=== PATIENT | female | born 1955 | race Caucasian/White ===

== ENCOUNTER 2020-12-06 07:06 | Day surgery (SDC) | payer BC ==
[2020-11-30 11:18] VITALS: BMI 27.4
[2020-12-06] MEDS ORDERED: PROPOFOL 20 ML ONE (08:31)
[2020-12-06] MEDS ORDERED: MIDAZOLAM HCL 2 MG/2 ML SINGLE DOSE VIAL ONE (08:31)
[2020-12-06] MEDS ORDERED: DEXAMETHASONE SOD PHOSPHATE 4 MG/1 ML VIAL ONE (08:49)
[2020-12-06] MEDS ORDERED: ONDANSETRON 4 MG/2 ML VIAL ONE (08:49)
[2020-12-06] MEDS ORDERED: KETOROLAC TROMETHAMINE 30 MG/1 ML VIAL ONE (08:49)
[2020-12-06 09:53] VITALS: BP 135/74; PULSE 74; TEMP 98
== END 2020-12-06 10:02 | disposition home or self-care (01) ==
LOC: FASU 07:06
PROVIDERS: ATTEND Orthopaedic Surgery Hand Surgery
PROC: 0LN70ZZ Release Right Hand Tendon, Open Approach (ICD-10-PCS; principal; 2020-12-06 08:30)
DX: M65.331 Trigger finger, right middle finger (principal)
CPT/HCPCS: 82962

== ENCOUNTER 2022-01-30 06:09 | Day surgery (SDC) | payer OTHER, BC ==
[2022-01-25 15:08] VITALS: BMI 26.5
[2022-01-30] MEDS ORDERED: LIDOCAINE HCL 2% (20ML MULTI-DOSE VIAL) ONE (07:22)
[2022-01-30] MEDS ORDERED: SUCCINYLCHOLINE CHLORIDE 200 MG/10 ML SYRINGE ONE (07:24)
[2022-01-30] MEDS ORDERED: PROPOFOL 20 ML ONE ×2 (07:24)
[2022-01-30] MEDS ORDERED: MIDAZOLAM HCL 2 MG/2 ML SINGLE DOSE VIAL ONE (07:24)
[2022-01-30] MEDS ORDERED: DEXAMETHASONE SOD PHOSPHATE 4 MG/1 ML VIAL ONE (07:45)
[2022-01-30] MEDS ORDERED: ONDANSETRON 4 MG/2 ML VIAL ONE (07:45)
[2022-01-30 08:26] VITALS: PULSE 71; TEMP 97.8
[2022-01-30 08:45] VITALS: BP 124/68
== END 2022-01-30 08:40 | disposition home or self-care (01) ==
LOC: FASU 06:09
PROVIDERS: ATTEND Orthopaedic Surgery Hand Surgery
PROC: 0LN70ZZ Release Right Hand Tendon, Open Approach (ICD-10-PCS; principal; 2022-01-30 07:53)
DX: M65.311 Trigger thumb, right thumb (principal)